=== PATIENT | male | born 1975 | race Caucasian/White ===

== ENCOUNTER 2020-08-22 08:06 | Day surgery (SDC) | payer OTHER, SELFPAY ==
[2020-08-22] VITALS (9 sets, daily range): BP systolic 117–161; BP diastolic 86–99; PULSE 62–82; RESP 16; TEMP 36.1–37; O2SAT 96–100; BMI 25.5
--- NOTE | 2020-08-22 | TONS_PTH ---
PATIENT: MARKOS HEATON LOC: [facility] [place] U#:[id number] AGE/SX: 44/M ROOM: RE08/22/[address]: Dr. Rosalio Cheng MD : 1975 BED: DIS: 08/22/2020 SPEC #: [id number] RECD: 08/22/20 10:51 STATUS: WALE REFavio #: [id number] EZIO: 08/22/20 00:[address]: Rosalio Cheng DEPT: SURGICAL PATHOLOGY RECD BY: Adelaide Dupree ENTERED: 08/22/20 11:43 SP TYPE: TONSILS OTHR DR: Dr. Rosalio Navarro MD Tissues: A - Tonsil, NOS B - Tonsil, NOS Procedures: Frozen Section (charge) Surgery Specimen Level III HEADER OPERATION: Tonsillectomy, direct laryngoscopy with biopsy, frozen section PRE-OP DIAGNOSIS: Hypertrophy of tonsils TISSUE SUBMITTED: A - Left tonsil, FS, B - Right tonsil FROZEN SECTION DIAGNOSIS A. 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 Negative for invasive carcinoma. SJ:geovanny 08/22/2020 MICROSCOPIC DIAGNOSIS A. 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 Negative for invasive carcinoma. Reactive lymphoid hyperplasia. Focal actinomyces colonization. See comment. B. Right tonsil, tonsillectomy: Reactive lymphoid hyperplasia. Focal actinomyces colonization. SJ:geovanny 08/25/2020 COMMENT A. Immunohistochemistry ([id number]) for surrogate HPV marker (p16) will be performed and results will be reported separately. This case has been reviewed in consultation with Dr. Bray who concurs with the above diagnosis. MICROSCOPIC DESCRIPTION Slides are reviewed. GROSS DESCRIPTION A - Received fresh for frozen section diagnosis labeled with the patient's name is a specimen designated left tonsil. The specimen consists of a tonsil that weighs 4.5 gm and measures 3 x 2.5 x 1.5 cm. At one edge of the tonsil there is a polypoid lesion measuring 0.7 x 0.5 x 0.5 cm. The polypoid lesion is bisected. The external surface of the tonsil is pink-jacob, smooth, glistening and somewhat lobulated. Focally it is hemorrhagic, granular and bears cautery artifact. Serial cross sections through the tonsil reveal normal tonsillar architecture. The entire specimen is submitted in four cassettes as follows: 1 - frozen section, polypoid lesion, 2 - frozen section, tonsil, 3 & 4 - rest of the tonsil. B - Received in formalin labeled with the patient's name and designated right tonsil. The specimen consists of a tonsil that weighs 4.3 gm and measures 3 x 2 x 1.5 cm. The external surface is pink-jacob, smooth, glistening and somewhat lobulated. Focally it is hemorrhagic, granular and bears cautery artifact. Serial cross sections through the tonsil reveal normal tonsillar architecture. The entire specimen is submitted in two cassettes. / RALPH:geovanny 08/22/20 TC:1 CPT: 50453, 66043, 91458, 37179
--- NOTE | 2020-08-22 | IMM_PTH ---
PATIENT: MARKOS HEATON LOC: [facility] – [place] U#:[id number] AGE/SX: 44/M ROOM: RE08/22/[address]: Dr. Rosalio Cheng MD : 1975 BED: DIS: 08/22/2020 SPEC #: [id number] RECD: 08/25/20 12:52 STATUS: WALE REQ #: [id number] EZIO: 08/22/20 00:[address]: Rosalio Cheng DEPT: IMMUNOHISTOCHEMISTRY RECD BY: Adelaide Dupere ENTERED: 08/25/20 12:53 SP TYPE: IMMUNO OTHR DR: Dr. Rosalio Navarro MD Tissues: A - Tonsil, NOS Procedures: p16 (initial) KI-67 (add) Comments: @ Specimen number changed from [id number] to [id number] @ on 08/25/20 at 1306 by RGOOD. PHYSICIAN & INSTITUTION [place] [address] SPECIMEN INFORMATION: Tissue Source: A - Left tonsil Clinical Info: Hypertrophy of tonsils Specimen Number: [id number] CPT code: 75101, 31345 METHODOLOGY: Deparaffinized sections of prefer/formalin-fixed tissue or PAP/DQ stained slides are incubated with monoclonal/polyclonal antibodies/oligonucleotide probes. Localization is made via biotin free immunoperoxidase method. Appropriate controls are performed and reacted as expected. Results on target cell population are indicated in the following table: RESULTS: ANTIBODY / CLONE RESULT Block A1 P16 (E6H4) positive, block staining Ki-67 (30-9) positive, high These tests were developed and their performance characteristics determined by [facility]. They may not have been cleared or approved by the U.[place]. Food and Drug Administration. The FDA has determined that such clearance or approval is not necessary. The above immunohistochemical/dualISH markers are ordered and reviewed by the Pathologist. INTERPRETATION: A. 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 RALPH:geovanny 08/26/2020
[2020-08-22] MEDS: Lactated Ringers 1,000 ML 100 ML IV (08:47)
[2020-08-22] MEDS: Oxymetazoline 0.05% 1 SPRAY SPRAY.BTL 15 SPRAY (10:51)
[2020-08-22] MEDS: Lidocaine 4% 50 ML Bottle (10:52)
--- NOTE | 2020-08-22 11:22 | OP.PCM_ITS ---
Problem List (1) Benign neoplasm of tonsil Status: Acute Report of Operation Date of Procedure: 08/22/20 Pre-Operative Diagnosis: Benign lesion left tonsil Post-Operative Diagnosis: Same Surgery/Procedure Performed:: Direct laryngoscopy, tonsillectomy Description of Surgical Findings:: Brandie this is a 44-year-old male with a mass of the left inferior pole of the tonsil. He has no smoking history or other history of malignancy however given its appearance further evaluation and excision for biopsy was advised. The risks, alternatives, potential complications, and benefits were discussed at length and any questions answered to the patient and/or caregiver's satisfaction. Witnessed informed consent was obtained in the office, and the patient and/or caregiver was agreeable to proceed. Procedure went as follows: The patient was identified in the preoperative holding and brought to the operating room, placed under general anesthesia, and intubated. When appropriate anesthesia was obtained, the head of bed was rotated and the patient prepped and draped in usual sterile fashion. A dental guard or moistened gauze was then placed to protect the upper gums and the Dedo laryngoscope then introduced. Direct laryngoscopy was then carried out. The lateral posterior pharyngeal wall mucosa, vallecula, piriforms, and epiglottis were noted to be normal in appearance. In the inferior pole of the left tonsil there was noted to be a 1 x 1.5 cm exophytic firm mass at the inferior pole with the junction of the lingual tonsil. The right tonsil was normal in appearance. The true and false vocal folds were then brought into view. This was noted to be normal without lesions or masses. The esophageal inlet was noted to be normal in appearance. The Dedo laryngoscope and dental guard were then removed. Attention was then turned to the tonsillectomy. A Parviz Pineda mouthgag was then placed and the patient suspended from the [place] stand. The oral cavity was examined and noted to have 2+ tonsillar hypertrophy. Beginning on the right side, the right tonsil was then grasped with a curved tenaculum and dissected from the underlying capsule with monopolar cautery. This was then sent as specimen. Similar procedure was then completed on the contralateral side with extension of the dissection to include a portion of the lingual tonsil encompassing the visible mass. This was then sent for frozen section evaluation. Initial interpretation was a benign squamous papilloma with moderate dysplastic change but no esdras malignancy. In this no further resection was undertaken. The oral and nasal cavities were then irrigated with saline solution. An NG tube was then placed to decompress the stomach. The patient was then returned to anesthesia, revived and extubated having tolerated the procedure well. Type of Anesthesia:: General Anesthesiologist: John Delgado Special Medications: none Specimen's removed: bilateral tonsils Drains: none Estimated Blood Loss (mL): 0 mL Fluids Replaced: 400 mL Grafts/Implants Used: none - Complications none - Admit VTE Documentation VTE Present on Admission: No VTE Mechan Device Prophylaxis: SCD's VTE Pharm Prophylaxis ordered?: No
--- NOTE | 2020-08-22 11:28 | DCINST_ITS ---
Discharge Diet: No Restrictions Discharge Activity: Return to Normal Activity Call your doctor if your incision/area has: Sudden Increased Bleeding Call your doctor if you observe: Fever of 101 or Higher, Uncontrolled pain Allergies/Adverse Reactions: Allergies No Known Allergies Allergy (Verified 08/22/20 08:34) Medications to take at Discharge Varenicline [Chantix] 1 mg PO BID 08/15/20 Primary Care Physician: Rosalio Navarro MD [Primary Care Provider] - Test Results: Test results from this visit will be discussed in further detail at your follow- up appointment, if applicable. Please Follow Up With: Rosalio Cheng MD When: 2 weeks
[2020-08-22] MEDS: Ibuprofen 100 MG/5 ML UDC 600 MG PO (13:19)
== END 2020-08-22 15:46 | disposition home or self-care (01) ==
LOC: SDC 08:12 → AC 08:13
PROVIDERS: PCP Family Medicine; Referring Provider Otolaryngology; Visit Provider Otolaryngology
PROC: (CPT 31525; principal; 2020-08-22 09:55)
DX: D10.4 Benign neoplasm of tonsil (principal); J35.1 Hypertrophy of tonsils; Z20.822 Contact with and (suspected) exposure to COVID-19; Z87.891 Personal history of nicotine dependence
CPT/HCPCS: 00320; 31525; 42826; 87426; 88304; 88331; 88341; 88342; C9803; J7120; J2405

== ENCOUNTER → 2020-10-10 16:00 | Outpatient (CLI) | payer BC, SELFPAY ==
[2020-08-22 08:48] VITALS: BMI 25.5
== END ==
PROVIDERS: PCP Family Medicine; Referring Provider Family Medicine; Visit Provider Family Medicine
DX: Z13.220 Encounter for screening for lipoid disorders (principal); Z87.891 Personal history of nicotine dependence
CPT/HCPCS: 36415

== ENCOUNTER → 2023-01-04 | Outpatient (CLI) | payer OTHER, SELFPAY ==
[2023-01-04 10:26] LABS: Microalbumin:Creatinine Ratio 3.7 mg/g CRE (<30 mg/g CRE)
[2023-01-04 10:51] LABS: Alanine Aminotransfer ALT/SGPT 64 U/L (16-61); Cholesterol 211 mg/dL (200); Creatinine, Serum 0.98 mg/dL (0.70-1.30); EST Glomerular Filtration Rate 86 mL/min (>60); Est Glom Filt Rate - Afr Amer 104 mL/min (>60); High Density Lipoprotein 64 mg/dL; Triglycerides 95 mg/dL; Very Low Density Lipoprotein 19 mg/dL (5-40)
== END | disposition home or self-care (01) ==
LOC: MTLAB 07:50
PROVIDERS: PCP Family Medicine; Referring Provider Family Medicine; Visit Provider Family Medicine
DX: E78.5 Hyperlipidemia, unspecified (principal)
CPT/HCPCS: 36415; 80061; 82043; 82565; 82570; 84460

== ENCOUNTER → 2023-07-08 | Outpatient (CLI) | payer SELFPAY ==
--- OUTSIDE RECORDS SUMMARY | 2023-07-08 10:55 | XMS RPT_ITS | CCD ---
Author Name Unknown Address [address] [place] [address] Organization [facility] Care Team Providers Care Director Funeral Name Role Phone Low, Frank W Unavailable Unavailable Low, Frank W Unavailable Unavailable No Doctor Assigned, Nodr Unavailable Unavail able Low, Frank W Unavailable Unavailable No Doctor Assigned, Nodr Unavailable Unavail able Ramon MANRIQUE, Rosalio Higuera Primary Care Provider Rosalio Navarro MD Primary Care Provider [phone] Dr. Rosalio Navarro Primary Care Unavailable Smooth, Dr. Satya Steinberg Admitting Ventura Rebollar, Dr. Satya Steinberg Attending Ventura Rebollar, Dr. Satya Steinberg Referring Dr. Rosalio Borden Primary Care Unavailable Smooth, Dr. Satya Steinberg Admitting Ventura Rebollar, Dr. Satya Steinberg Attending Ventura Rebollar, Dr. Satya Steinberg Referring Ventura gallagher Allergies Allergy Classification Reported Allergen(s) Allergy Type Date of Onset Reaction(s) Facility (1 source) No Known Medication Allergies; Translations: [No Known Medication Allergies] Propensity to adverse reactions to drug (disorder) [facility] Repository Medications Current Medications Medication Drug Class(es) Dates Sig (Normalized) Sig (Original) benoxinate hydrochloride 4 mg/ml / fluorescein sodium 2.5 mg/ml ophthalmic solution (1 source) Diagnostic Dye Start: 08-04-2021 End: 08-05-2021 fluorescein-yves xinate 0.25-0.4 % 1 Drop (FLURESS) ketorolac tromethamine 5 mg/ml ophthalmic solution (4 sources) Nonsteroidal Anti-inflammatory Drug, Cyclooxygenase Inhibitor Start: 01-07-2022 End: 02-11-2022 take 1 drop(s) into the eye(s) four times daily keTORolac (ACULAR) 0.5 % ophthalmic solution Use 1 Drop in the left eye four times daily. 5 mL 1 01/07/2022 02/11/2022 Active Completed/Discontinued Medications Medication Drug Class(es) Dates Sig (Normalized) Sig (Original) fluorometholone 1 mg/ml ophthalmic suspension (1 source) Corticosteroid Start: 12-29-2021 fluorometholone (FML LIQUID FILM) 0.1 % ophthalmic suspension Use 1 Drop in the left eye three times daily. 5 mL 1 12/29/2021 Active Problems Active Problems Problem Classification Problem Date Documented Da te Episodic/Chronic Cataract (20 sources) Senile combined form cataract of right eye; Translations: [Combined forms of age-related cataract, right eye] Onset: 08-04-2021 Chronic Other eye disorders (1 source) H/O: R cataract extraction; Translations: [Cataract extraction status, right eye] Episodic Other eye disorders (2 sources) H/O: L cataract extraction; Translations: [Cataract extraction status, left eye] Onset: 01-08-2022 Episodic Past or Other Problems Problem Classification Problem Date Documented Da te Episodic/Chronic Blindness and vision defects (1 source) Regular astigmatism, left eye; Translations: [Regular astigmatism, left eye] Onset: 01-07-2022 Episodic Results Test Name Value Interpretation Reference Range Facil ity Vital Signs Date Time Vital Sign Value Performing Clinician Mary Ellen austin 08-25-2021 16:07-0400 Diastolic blood pressure 94 mm[Hg] Satya Rebollar MD Work Phone: [facility] 08-25-2021 16:07-0400 Heart rate 70 /min Satya Rebollar MD Work Phone: [facility] 08-25-2021 16:07-0400 Systolic blood pressure 127 mm[Hg] Satya Rebollar MD Work Phone: [facility] 08-04-2021 14:46-0400 Diastolic blood pressure 94 mm[Hg] Satya Rebollar MD Work Phone: [facility] 08-04-2021 14:46-0400 Heart rate 70 /min Satya Rebollar MD Work Phone: [facility] 08-04-2021 14:46-0400 Systolic blood pressure 127 mm[Hg] Satya Rebollar MD Work Phone: [facility] Encounters Encounter Date Encounter Type Care Provider Facility Start: 01-08-2022 End: 01-08-2022 Patient encounter procedure Satya Rebollar MD Work Phone: Ophthalmology Procedures Date Procedure Procedure Detail Performing Clinician Start: 08-04-2021 IOL BIOMETRY W/ IOL CALC OU (BOTH EYES) Satya Rebollar MD Work Phone: Start: 08-04-2021 Computerized ophthal susan imaging retina Satya Rebollar MD Work Phone: Plan of Treatment Date Care Activity Detail Author Start: 01-14-2022 Influenza vaccination [facility] Start: 01-14-2021 Influenza vaccination INFLUENZA (#1) [facility] Start: 2018 COLOGUARD (FIT-DNA) COLOGUARD (FIT-D NA) [facility] Start: 2018 Colonoscopy COLONOSCOPY [facility] Start: 2018 COLORECTAL CANCER SCREENING COLORECTAL CANCER SCREENING [facility] Start: [address] COLONOGRAPHY [facility] Start: 2018 DIABETES SCREEN DIABETES SCREEN [facility] Start: 2018 FECAL OCCULT BLOOD FECAL OCCULT BLOO D [facility] Start: 2018 SIGMOIDOSCOPY SIGMOIDOSCOPY [facility] Start: 2008 LIPID SCREEN LIPID SCREEN [facility] Start: 1992 Urine microalbumin profile DTAP,TDAP ,TD (1 - Tdap) [facility] Start: 10-12-1991 HEPATITIS C SCREENING HEPATITIS C SC REENING [facility] Start: 10-12-1991 HIV SCREENING HIV SCREENING [facility] Start: 1985 Adult depression scr [facility] assessment DEPRESSION SCREENING [facility] Start: 1978 COVID-19 VACCINE (1) COVID-19 VACCIN E (1) [facility] Start: 04-13-1974 COVID-19 VACCINE (#1) COVID-19 VACCI NE (#1) [facility] Start: 1973 HEPATITIS B (1 of 3 - 3-dose series) HEPATITIS B (1 of 3 - 3-dose series) [facility] Payers Date Payer Category Payer Unknown MMO MMO [employer] [id number] 2021-Present [phone] [address] [place] [address] PPO [id number] 2017 Unknown 1973 Unknown [id number] 1973 Unknown [id number] Unknown [id number] Social History Date Type Detail Facility Start: 08-04-2021 End: 01-08-2022 Tobacco smoking status NHIS Never smoked tobacco [facility] Work Phone: Start: 08-04-2021 End: 01-08-2022 Tobacco use and exposure Smokeless tobacco non-user [facility] Work Phone: Start: 1975 Sex Assigned At Not on file [facility] Start: 07-25-2021 End: 09-04-2021 Exposure to SARS-CoV-2 (event) Not sure [facility] Clinical Notes 08-04-2021 to 01-08-2022 Satya Rebollar MD - 01/08/2022 3:25 PM EDTPatient Instructions Note Date & Type Note Facility 01-08-2022 Note HNO ID: [id number] Author: Satya Rebollar MD Service: ? Author Type: Physician Type: Progress Notes Filed: 01/08/2022 3:29 PM Note Text: ASSESSMENT/PLAN: 1. Status post cataract extraction and insertion of intraocular lens of left eye - ICD9: V45.61, V43.1, ICD10: Z98.42, Z96.1 (primary diagnosis) Current Ophthalmic Meds keTORolac (ACULAR) 0.5 % ophthalmic solution Use 1 Drop in the left eye four times daily. fluorometholone (FML LIQUID FILM) 0.1 % ophthalmic suspension Use 1 Drop in the left eye three times daily. Continue: Systane Complete Artificial Tears - Use 1 Drop into both eyes three times a day. 2. Pseudophakia of right eye - ICD9: V43.1, ICD10: Z96.1 I have confirmed and edited as necessary the relevant ophthalmic history, review of systems, surgical history, and ophthalmological examination findings as obtained by the ophthalmic technical staff. I have seen and examined Markos Heaton. I have discussed the examination findings, diagnosis, and treatment options with Markos Heaton and/or his family. I have also reviewed and agree with the assessment and plan as stated above and agree with all its relevant components. I gave the patient the opportunity to ask questions about the findings, diagnosis, and treatment options. Satya Rebollar MD [facility] 01-08-2022 History of Present illness Narrative ASSESSMENT/PLAN: 1. Status post cataract extraction and insertion of intraocular lens of left eye - ICD9: V45.61, V43.1, ICD10: Z98.42, Z96.1 (primary diagnosis) Current Ophthalmic Meds keTORolac (ACULAR) 0.5 % ophthalmic solution Use 1 Drop in the left eye four times daily. fluorometholone (FML LIQUID FILM) 0.1 % ophthalmic suspension Use 1 Drop in the left eye three times daily. Continue: Systane Complete Artificial Tears - Use 1 Drop into both eyes three times a day. 2. Pseudophakia of right eye - ICD9: V43.1, ICD10: Z96.1 I have confirmed and edited as necessary the relevant ophthalmic history, review of systems, surgical history, and ophthalmological examination findings as obtained by the ophthalmic technical staff. I have seen and examined Markos Heaton. I have discussed the examination findings, diagnosis, and treatment options with Markos Heaton and/or his family. I have also reviewed and agree with the assessment and plan as stated above and agree with all its relevant components. I gave the patient the opportunity to ask questions about the findings, diagnosis, and treatment options. Satya Rebollar MD documented in this encounter [facility] 01-08-2022 Instructions Satya Rebollar MD - 01/08/2022 3:24 PM EDT Stop FML drops. Current Ophthalmic Meds keTORolac (ACULAR) 0.5 % ophthalmic solution Use 1 Drop in the left eye four times daily. fluorometholone (FML LIQUID FILM) 0.1 % ophthalmic suspension Use 1 Drop in the left eye three times daily. If you have any questions please contact our office at [phone]. After office hours or on the weekend, please call Dr. Rebollar on his cell phone at [phone]. documented in this encounter [facility] 01-07-2022 Note Post Operative Note: Post-Procedure Diagnosis: 1. Combined Form Age Related Cataract Left Eye 2. Regular Astigmatism Left Eye Procedure: 1. Cataract Extraction with Intraocular lens Implant with LRI (Limbal Relaxing Incision) Left Eye Surgeon: Satya Rebollar MD Resident/Fellow/Other Cartographic Designer: None Estimated Blood Loss (mL): none Specimen: no Findings: 1. Combined Form Age Related Cataract Left Eye 2. Regular Astigmatism Left Eye Operative Report Dictated: Dictation: not applicable - note contains Operative Report Operative Report: In the pre-op area the patients operative eye was marked at 3 o'clock, 6 o'clock and 9 o'clock at the limbus with a fine marking pen in a sitting position. The patient was brought to the operating room. The patient was correctly identified in the preop area and the operative eye was marked with a marking pen. The operative eye was dilated in the preoperative area. The patient was then taken to the operating room where timeout was performed before starting the procedure. Combined anesthesia with intravenous sedation and topical tetracaine eyedrops were given in the operative eye. The operative eye was prepped and draped in the standard sterile ophthalmic fashion in preparation for ophthalmic surgery. A Efren wire speculum was then inserted between the eyelids of the operative eye and the operating microscope was placed over the operative eye. A 45 degree Arc Limbal Relaxing incision was made at 93 degree axis with the help of a linda knife set at 600 micron depth. A paracentesis incision was made approximately 30 away from the planned surgical incision site with the help of MVR blade. 1% lidocaine MPF with Phenylephrine1.5% PF was injected into the anterior chamber through the paracentesis incision. A near limbal clear corneal incision was fashioned in the temporal quadrant just outside the vascular arcade and Viscoat was injected into anterior chamber to firm the eye. A bent needle cystotome was used and Utrata forceps were utilized to create a continuous curvilinear capsulorrhexis. BSS was injected beneath the anterior capsule to hydrodissect the nucleus from adjacent cortex and capsule. The residual cortex were then aspirated with irrigation aspiration handpiece. The posterior capsule was then polished with the help of soft irrigation-aspiration tip. Provisc viscoelastic was then injected into the eye to reform the anterior chamber and to open the capsular bag. The intraocular lens implant was taken from its sterile wrapping, inspected under the surgical microscope and found to be in good condition. The intraocular lens implant 23.5D was injected into the capsule bag. The Provisc was then aspirated from the anterior chamber and from behind the intraocular lens implant. The anterior chamber was inflated with the help of BSS to moderate tension. And the edges of the surgical incision were then hydrated with the help of BSS. Vigamox was then injected into the anterior chamber and into the capsule bag through the paracentesis incision. The surgical wound was then inspected and found to be watertight. The wire speculum and drapes were then removed. Pred Forte eyedrops, Acular eyedrops and Betadine 5% sterile ophthalmic solution were instilled in the conjunctival sac. The patient tolerated the procedure well and was taken to recovery room in stable condition. Attestation: Note Completion: Attending AttestationI performed the procedure without a resident Electronic Signatures: Satya Rebollar) (Signed 07-Jan-2022 13:43) Authored: Post Operative Note, Note Completion Last Updated: 07-Jan-2022 13:43 by Satya Rebollar) [facility] 01-07-2022 Note History & Physical R eviewed: I have reviewed the History and Physical dated: 01-Jan-2022 History and Physical reviewed and relevant findings noted. Patient examined to review pertinent physical findings.: No significant changes Home Medications Reviewed: no changes noted Allergies Reviewed: no changes noted ERAS (Enhanced Recovery After Surgery): ERAS Patient: no Consent: COVID-19 Consent: COVID-19 Risk ConsentSurgeon has reviewed child risks related to the risk of curt COVID-19 and if they contract COVID-19 what the risks are. Electronic Signatures: Satya Rebollar) (Signed 07-Jan-2022 12:41) Authored: History & Physical Reviewed, ERAS, Consent, Note Completion Last Updated: 07-Jan-2022 12:41 by Satya Rebollar) [facility] 01-01-2022 Note HNO ID: [id number] Author: Satya Rebollar MD Service: ? Author Type: Physician Type: Progress Notes Filed: 01/01/2022 2:23 PM Note Text: ASSESSMENT/PLAN: 1. Combined form of age-related cataract, left eye - ICD9: 366.19, ICD10: H25.812 (primary diagnosis) 2. Regular astigmatism of left eye - ICD9: 367.21, ICD10: H52.222 Cataract Presurgical Documentation Cataract: Left eye (OS) Current Visual Acuity Right Eye Distance SC 20/20 Left Eye Distance SC 20/50 Glare Testing: Left Eye Medium 20/80 Visual Function: Markos Heaton states that the decline in vision from the cataract impedes his abilities as listed in the HPI, as well as other activities of daily living. Markosaidee Heaton has confirmed that he is no longer able to function adequately on a day-to-day basis because of his current visual condition. Further, it is my medical opinion that the cataract is the primary cause, or at least a significantly contributory cause of his visual dysfunction. With uncomplicated cataract surgery and lens implantation, it is my expectation that his visual function and quality of life will improve, significantly. The risks, benefits, alternatives, personnel and complications of cataract surgery with lens implantation were discussed with Markos Isra Heaton in detail. he appeared to understand and asked that I proceed with plans for surgery. PHYSICAL EXAM: Vital Signs: Blood pressure 129/88, pulse 63. Respiratory: Normal breath sounds, no wheezing. CARD: Normal heart sounds 1 AND 2, normal sinus rhythm. Current Ophthalmic Meds fluorometholone (FML LIQUID FILM) 0.1 % ophthalmic suspension Use 1 Drop in the left eye three times daily. Patient wishes to have traditional cataract surgery with basic Intraocular lens left eye with limbal relaxing incisions on January 07, 2022 at [facility]. Patient wishes to have cataract surgery with the option stated above. Patient understands that an intraocular lens implant does not necessarily replace the need for glasses. Patient understands that it is impossible for the surgeon to inform him/her of every possible complication that may occur. The surgeon has answered all of the patient's questions. Patient understands that if he/she has a mature or dense cataract, pseudoexfoliation cataract, or history of use of Flomax, he/she may require the use of Maluyugin Ring and/or Vision Blue during surgery. Patient understands the risks, benefits, and alternatives to surgery. 3. Pseudophakia of right eye - ICD9: V43.1, ICD10: Z96.1 I have confirmed and edited as necessary the relevant ophthalmic history, review of systems, surgical history, and ophthalmological examination findings as obtained by the ophthalmic technical staff. I have seen and examined Markos Heaton. I have discussed the examination findings, diagnosis, and treatment options with Markos Heaton and/or his family. I have also reviewed and agree with the assessment and plan as stated above and agree with all its relevant components. I gave the patient the opportunity to ask questions about the findings, diagnosis, and treatment options. Satya Rebollar MD [facility] documented as of this encounter (statuses as of 01/08/2022) [facility]08-16-2022 NoteHNO ID: [id number] Author: Satya Rebollar MD Service: ? Author Type: Physician Type: Progress Notes Filed: 12/29/2021 9:30 AM Note Text: ASSESSMENT/PLAN: 1. Combined form of age-related cataract, left eye - ICD9: 366.19, ICD10: H25.812 (primary diagnosis) Patient wishes to have traditional cataract surgery with astigmatism correction by Limbal Relaxing Incisions left eye scheduled on 01/07/22. Patient wishes to have cataract surgery with the option stated above. Patient understands that an intraocular lens implant does not necessarily replace the need for glasses. Patient understands that it is impossible for the surgeon to inform him/her of every possible complication that may occur. The surgeon has answered all of the patient's questions. Patient understands that if he/she has a mature or dense cataract, pseudoexfoliation cataract, or history of use of Flomax, he/she may require the use of Maluyugin Ring and/or Vision Blue during surgery. Patient understands the risks, benefits, and alternatives to surgery. Start Inveltys three times a day left eye (when finished with inveltys start FML) Systane Complete Artificial Tears - Use 1 Drop into both eyes three times a day. Cataract Presurgical Documentation Cataract: Left eye (OS) Current Visual Acuity Right Eye Distance SC 20/25 Left Eye Distance SC 20/50 Left Eye Distance CC 20/50 Best Corrected Vision Left Eye 20/50 Glare Testing: Left Eye Medium 20/80 Visual Function: Markos Heaton states that the decline in vision from the cataract impedes his abilities as listed in the HPI, as well as other activities of daily living. Markos Heaton has confirmed that he is no longer able to function adequately on a day-to-day basis because of his current visual condition. Further, it is my medical opinion that the cataract is the primary cause, or at least a significantly contributory cause of his visual dysfunction. With uncomplicated cataract surgery and lens implantation, it is my expectation that his visual function and quality of life will improve, significantly. The risks, benefits, alternatives, personnel and complications of cataract surgery with lens implantation were discussed with Markos Heaton in detail. he appeared to understand and asked that I proceed with plans for surgery. PHYSICAL EXAM: Vital Signs: Blood pressure 129/88, pulse 63. Respiratory: Normal breath sounds, no wheezing. CARD: Normal heart sounds 1 AND 2, normal sinus rhythm. 2. Pseudophakia of right eye - ICD9: V43.1, ICD10: Z96.1 - Intraocular lens in good position right eye I have confirmed and edited as necessary the relevant ophthalmic history, review of systems, surgical history, and ophthalmological examination findings as obtained by the ophthalmic technical staff. I have seen and examined Markos Heaton. I have discussed the examination findings, diagnosis, and treatment options with Markos Heaton and/or his family. I have also reviewed and agree with the assessment and plan as stated above and agree with all its relevant components. I gave the patient the opportunity to ask questions about the findings, diagnosis, and treatment options. Satya Rebollar [facility]04-22-2022 NoteHNO ID: [id number] Author: Satya Rebollar MD Service: ? Author Type: Physician Type: Progress Notes Filed: 09/04/2021 9:42 AM Note Text: ASSESSMENT/PLAN: 1. Status post cataract extraction and insertion of intraocular lens of right eye - ICD9: V45.61, V43.1, ICD10: Z98.41, Z96.1 (primary diagnosis) Use medications as directed: Current Ophthalmic Meds keTORolac (ACULAR) 0.5 % ophthalmic solution Use 1 Drop in the right eye four times daily for 7 days then 3 times daily until 10/08/2021 prednisoLONE acetate (PRED FORTE, ECONOPRED PLUS) 1 % ophthalmic suspension Use 1 Drop in the right eye four times daily for 7 days then 3 times daily until 10/08/2021 Systane Complete Artificial Tears - Use 1 Drop into both eyes three times a day. Post op appointment with Dr. Francis Navarro 1 week 2. Combined form of age-related cataract, left eye - ICD9: 366.19, ICD10: H25.[address] Ramon Rebollar MD I have confirmed and edited as necessary the relevant ophthalmic history, review of systems, surgical history, and ophthalmological examination findings as obtained by the ophthalmic technical staff. I have seen and examined Markos Heaton. I have discussed the examination findings, diagnosis, and treatment options with Markos Heaton and/or his family. I have also reviewed and agree with the assessment and plan as stated above and agree with all its relevant components. I gave the patient the opportunity to ask questions about the findings, diagnosis, and treatment options.[facility]04-22-2022 Instructions* Patient Instructions * Satya Rebollar MD - 09/04/2021 9:40 AM EDT Use medications as directed: Current Ophthalmic Meds keTORolac (ACULAR) 0.5 % ophthalmic solution Use 1 Drop in the right eye four times daily for 7 days then 3 times daily until 10/08/2021 prednisoLONE acetate (PRED FORTE, ECONOPRED PLUS) 1 % ophthalmic suspension Use 1 Drop in the righteye four times daily for 7 days then 3 times daily until 10/08/2021 Systane Complete Artificial Tears - Use 1 Drop into both eyes three times a day. If you have any questions please contact our office at [phone]. After office hours or on the weekend, please call Dr. Rebollar on his cell phone at [phone]. [facility] History of Present illness Narrative* Satya Rebollar MD - 09/04/2021 9:38 AM EDT ASSESSMENT/PLAN: 1. Status post cataract extraction and insertion of intraocular lens of right eye - ICD9: V45.61, V43.1, ICD10: Z98.41, Z96.1 (primary diagnosis) Use medications as directed: Current Ophthalmic Meds keTORolac (ACULAR) 0.5 % ophthalmic solution Use 1 Drop in the right eye four times daily for 7 days then 3 times daily until 10/08/2021 prednisoLONE acetate (PRED FORTE, ECONOPRED PLUS) 1 % ophthalmic suspension Use 1 Drop in the righteye four times daily for 7 days then 3 times daily until 10/08/2021 Systane Complete Artificial Tears - Use 1 Drop into both eyes three times a day. Post op appointment with Dr. Francis Navarro 1 week 2. Combined form of age-related cataract, left eye - ICD9: 366.19, ICD10: H25.[address] Ramon Rebollar MD I have confirmed and edited as necessary the relevant ophthalmic history, review of systems, surgical history, and ophthalmological examination findings as obtained by the ophthalmic technical staff.I have seen and examined Markos Heaton. I have discussed the examination findings, diagnosis, and treatment options with Markos Heaton and/or his family. I have also reviewed and agree with the assessment and plan as stated above and agree with all its relevant components. I gave the patient the opportunity to ask questions about the findings, diagnosis, and treatment options. documented [facility] encounter[facility] NotePost Operative Note: Post-Procedure Diagnosis: 1. Combined Form Age Related Cataract Right Eye Procedure: 1. Cataract Extraction with Intraocular Lens Implant Right Eye Surgeon: Satya Rebollar MD Resident/Fellow/Other Cartographic Designer: None Estimated Blood Loss (mL): none Specimen: no Findings: 1. Combined Form Age Related Cataract Right Eye Operative Report Dictated: Dictation: not applicable - note contains Operative Report Operative Report: The patient was correctly identified and the patient's operative eye was marked with a marking pen and verified with the patient in the pre-operative area. The operative eye was dilated in the preoperative area. The patient was then taken to the operating room where timeout was performed before starting the procedure. Combined anesthesia with intravenous sedation and topical tetracaine eyedrops were instilled into the right eye. The operative eye was prepped and draped in the standard sterile ophthalmic fashion in preparation for ophthalmic surgery. A Efren wire speculum was then inserted between the eyelids of the right eye and the operating microscope was placed over the right eye. A paracentesis incision was made approximately 30 away from the planned surgical incision site with the help of MVR blade. 1% lidocaine MPF with Phenylephrine 1.5% PF was injected into the anterior chamber through the paracentesis incision. A near limbal clear corneal incision was fashioned in the temporal quadrant just outside the vascular arcade and Viscoat was injected into anterior chamber to firm the eye. A bent needle cystotome was used and Utrata forceps were utilized to create a continuous curvilinear capsulorrhexis. BSS was injected beneath the anterior capsule to hydrodissect the nucleus from adjacent cortex and capsule. The residual cortex was then aspirated with irrigation/aspiration handpiece. The posterior capsule was then polished with the help of soft irrigation-aspiration tip. Provisc viscoelastic was then injected into the eye to reform the anterior chamber and to open the capsular bag. The intraocular lens implant was taken from its sterile wrapping, inspected under the surgical microscope and found to be in good condition. The intraocular lens implant 23.5D was injected into the capsule bag. The Provisc was then aspirated from the anterior chamber and from behind the intraocular lens implant. The anterior chamber was inflated with the help of BSS to moderate tension. And the edges of the surgical incision were then hydrated with the help of BSS. Vigamox was then injected into the anterior chamber and into the capsule bag through the paracentesis incision. The surgical wound was then inspected and found to be watertight. The wire speculum and drapes were then removed. Pred Forte eyedrops, Acular eyedrops and Betadine 5% sterile ophthalmic solution were instilled in the conjunctival sac. The patient tolerated the procedure well and was taken to recovery room in stable condition. Attestation: Note Completion: Attending AttestationI performed the procedure without a resident Electronic Signatures: Satya Rebollar) (Signed 03-Sep-2021 10:57) Authored: Post Operative Note, Note Completion Last Updated: 03-Sep-2021 10:57 by Satya Rebollar)[facility] 09-03-2021 NoteHistory & Physical Reviewed: I have reviewed the History and Physical dated: 25-Aug-2021 History and Physical reviewed and relevant findings noted. Patient examined to review pertinent physical findings.: No significant changes Home Medications Reviewed: no changes noted Allergies Reviewed: no changes noted ERAS (Enhanced Recovery After Surgery): ERAS Patient: no Consent: COVID-19 Consent: COVID-19 Risk ConsentSurgeon has reviewed child risks related to the risk of curt COVID-19 and if they contract COVID-19 what the risks are. Electronic Signatures: Satya Rebollar) (Signed 03-Sep-2021 09:12) Authored: History & Physical Reviewed, ERAS, Consent, Note Completion Last Updated: 03-Sep-2021 09:12 by Satya Rebollar)[facility] 08-25-2021 NoteHNO ID: [id number] Author: Satya Rebollar MD Service: ? Author Type: Physician Type: Progress Notes Filed: 08/25/2021 4:26 PM Note Text: ASSESSMENT/PLAN: 1. Combined form of age-related cataract, right eye - ICD9: 366.19, ICD10: H25.811 (primary diagnosis) Cataract Presurgical Documentation Cataract: Right eye (OD) Patient reported symptoms: Associated symptoms Positive for: Blurred Vision, difficulty with driving, difficulty with reading, difficulty with watching television Negative for: Eye Redness, foreign body sensation, decreased vision, flashes, floaters, tearing, dryness, halos, glare Current Visual Acuity: Right Eye Distance CC 20/80 Left Eye Distance CC 20/30 Glare Testing: Left Eye Medium 20/60 Visual Function: David Heaton states that the decline in vision from the cataract impedes the ability to drive and to read as well as other activities of daily living. David Heaton has confirmed that he is no longer able to function adequately on a day-to-day basis because of his current visual condition. Further, it is my medical opinion that the cataract is the primary cause, or at least a significantly contributory cause of his visual dysfunction. With uncomplicated cataract surgery and lens implantation, it is my expectation that his visual function and quality of life will improve, significantly. The risks, benefits, alternatives, personnel and complications of cataract surgery with lens implantation were discussed with David Heaton in detail. he appeared to understand and asked that I proceed with plans for surgery. PHYSICAL EXAM: Vital Signs: Blood pressure 127/94, pulse 70. Respiratory: Normal breath sounds, no wheezing. CARD: Normal heart sounds 1 AND 2, normal sinus rhythm. Current Ophthalmic Meds loteprednol etabonate (EYSUVIS) 0.25 % drps Use 1 Drop in eyes four times daily. Systane Complete Artificial Tears - Use 1 Drop into both eyes three times a day. Patient wishes to have traditional cataract surgery with basic Intraocular lens right eye on September 03, 2021 At [facility]. Patient wishes to have cataract surgery with the option stated above. Patient understands that an intraocular lens implant does not necessarily replace the need for glasses. Patient understands that it is impossible for the surgeon to inform him/her of every possible complication that may occur. The surgeon has answered all of the patient's questions. Patient understands that if he/she has a mature or dense cataract, pseudoexfoliation cataract, or history of use of Flomax, he/she may require the use of Maluyugin Ring and/or Vision Blue during surgery. Patient understands the risks, benefits, and alternatives to surgery. 2. Combined form of age-related cataract, left eye - ICD9: 366.19, ICD10: H25.812 Schedule surgery once the right eye is stable. Satya Rebollar MD I have confirmed and edited as necessary the relevant ophthalmic history, review of systems, surgical history, and ophthalmological examination findings as obtained by the ophthalmic technical staff. I have seen and examined David Heaton. I have discussed the examination findings, diagnosis, and treatment options with David Heaton and/or his family. I have also reviewed and agree with the assessment and plan as stated above and agree with all its relevant components. I gave the patient the opportunity to ask questions about the findings, diagnosis, and treatment options.[facility]04-12-2022 Instructions* Patient Instructions * Satya Rebollar MD - 08/25/2021 4:20 PM EDT Current Ophthalmic Meds loteprednol etabonate (EYSUVIS) 0.25 % drps Use 1 Drop in eyes four times daily. Systane Complete Artificial Tears - Use 1 Drop into both eyes three times a day. If you have any questions please contact our office at [phone]. After office hours or on the weekend, please call Dr. Rebollar on his cell phone at [phone]. documented in this encounterReg[facility]04-12-2022 History of Present illness Narrative* Satya Rebollar MD - 08/25/2021 4:17 PM EDT ASSESSMENT/PLAN: 1. Combined form of age-related cataract, right eye - ICD9: 366.19, ICD10: H25.811 (primary diagnosis) Cataract Presurgical Documentation Cataract: Right eye (OD) Patient reported symptoms: Associated symptoms Positive for: Blurred Vision, difficulty with driving, difficulty with reading, difficulty with watching television Negative for: Eye Redness, foreign body sensation, decreased vision, flashes, floaters, tearing, dryness, halos, glare Current Visual Acuity: Right Eye Distance CC 20/80 Left Eye Distance CC 20/30 Glare Testing: Left Eye Medium 20/60 Visual Function: David Heaton states that the decline in vision from the cataract impedes the ability to drive and to read as well as other activities of daily living. David Heaton has confirmed that he is no longer able to function adequately on a day-to-day basis because of his current visual condition. Further, it is my medical opinion that the cataract is the primary cause, or at least a significantly contributory cause of his visual dysfunction. With uncomplicated cataract surgery and lens implantation, it is my expectation that his visual function and quality of life will improve, significantly. The risks, benefits, alternatives, personnel and complications of cataract surgery with lens implantation were discussed with David Heaton in detail. he appeared to understand and asked that I proceedwith plans for surgery. PHYSICAL EXAM: Vital Signs: Blood pressure 127/94, pulse 70. Respiratory: Normal breath sounds, no wheezing. CARD: Normal heart sounds 1 & 2, normal sinus rhythm. Current Ophthalmic Meds loteprednol etabonate (EYSUVIS) 0.25 % drps Use 1 Drop in eyes four times daily. Systane Complete Artificial Tears - Use 1 Drop into both eyes three times a day. Patient wishes to have traditional cataract surgery with basic Intraocular lens right eye on September 03, 2021 At [facility]. Patient wishes to have cataract surgery with the option stated above. Patient understands that an intraocular lens implant does not necessarily replace the need for glasses. Patient understands that it is impossible for the surgeon to inform him/her of every possible complication that may occur. The surgeon has answered all of the patient'squestions. Patient understands that if he/she has a mature or dense cataract, pseudoexfoliation cataract, or history of use of Flomax, he/she may require the use of Maluyugin Ring and/or Vision Blue during surgery. Patient understands the risks, benefits, and alternatives to surgery. 2. Combined form of age-related cataract, left eye - ICD9: 366.19, ICD10: H25.812 Schedule surgery once the right eye is stable. Satya Rebollar MD I have confirmed and edited as necessary the relevant ophthalmic history, review of systems, surgical history, and ophthalmological examination findings as obtained by the ophthalmic technical staff.I have seen and examined David Heaton. I have discussed the examination findings, diagnosis, and treatment options with David Heaton and/or his family. I have also reviewed and agree with the assessment and plan as stated above and agree with all its relevant components. I gave the patient the opportunity to ask questions about the findings, diagnosis, and treatment options. documented in this encounterReg[facility]03-22-2022 NoteHNO ID: [id number] Author: Satya Rebollar MD Service: ? Author Type: Physician Type: Progress Notes Filed: 08/04/2021 4:14 PM Note Text: ASSESSMENT/PLAN: 1. Combined form of age-related cataract, right eye - ICD9: 366.19, ICD10: H25.811 (primary diagnosis) Reviewed Dr. Francis Navarro's examination and notes today Blood pressure 127/94, pulse 70. Cataract Presurgical Documentation Cataract: Right eye Patient reported symptoms: Associated symptoms Positive for: Blurred Vision, decreased vision, difficulty with reading (right eye worse than left), difficulty with watching television, glare Negative for: Itching, flashes, floaters, tearing, dryness, halos, burning Current Visual Acuity: Right Eye Distance CC 20/80 Left Eye Distance CC 20/30 Glare Testing: Left Eye Medium 20/60 Visual Function: David Heaton states that the decline in vision from the cataract impedes the ability to read, watch televison as well as other activities of daily living. David Heaton has confirmed that he is no longer able to function adequately on a day-to-day basis because of his current visual condition. Further, it is my medical opinion that the cataract is the primary cause, or at least a significantly contributory cause of his visual dysfunction. With uncomplicated cataract surgery and lens implantation, it is my expectation that his visual function and quality of life will improve, significantly. The risks, benefits, alternatives, personnel and complications of cataract surgery with lens implantation were discussed with David Heaton in detail. he appeared to understand and asked that I proceed with plans for surgery. Continue medications as directed: Current Ophthalmic Meds loteprednol etabonate (EYSUVIS) 0.25 % drps Use 1 Drop in the right eye four times daily Systane Complete Artificial Tears - Use 1 Drop into both eyes three times a day. Patient wishes to have traditional cataract surgery with basic Intraocular lens right eye 09/03/2021 at [facility] . Patient wishes to have cataract surgery with the option stated above. Patient understands that an intraocular lens implant does not necessarily replace the need for glasses. Patient understands that it is impossible for the surgeon to inform him/her of every possible complication that may occur. The surgeon has answered all of the patient's questions. Patient understands that if he/she has a mature or dense cataract, pseudoexfoliation cataract, or history of use of Flomax, he/she may require the use of Maluyugin Ring and/or Vision Blue during surgery. Patient understands the risks, benefits, and alternatives to surgery. 2. Combined form of age-related cataract, left eye - ICD9: 366.19, ICD10: H25.812 Plan surgery left eye once right eye is stable Satya Rebollar MD I have confirmed and edited as necessary the relevant ophthalmic history, review of systems, surgical history, and ophthalmological examination findings as obtained by the ophthalmic technical staff. I have seen and examined David Heaton. I have discussed the examination findings, diagnosis, and treatment options with David Heaton and/or his family. I have also reviewed and agree with the assessment and plan as stated above and agree with all its relevant components. I gave the patient the opportunity to ask questions about the findings, diagnosis, and treatment options.[facility]03-22-2022 Instructions* Patient Instructions * Satya Rebollar MD - 08/04/2021 4:11 PM EDT Continue medications as directed: Current Ophthalmic Meds loteprednol etabonate (EYSUVIS) 0.25 % drps Use 1 Drop in the right eye four times daily Systane Complete Artificial Tears - Use 1 Drop into both eyes three times a day. If you have any questions please contact our office at [phone]. After office hours or on the weekend, please call Dr. Rebollar on his cell phone at [phone]. documented in this encounterReg[facility]03-22-[facility]22 History of Present illness Narrative* Satya Rebollar MD - 08/04/2021 4:04 PM EDT ASSESSMENT/PLAN: 1. Combined form of age-related cataract, right eye - ICD9: 366.19, ICD10: H25.811 (primary diagnosis) Reviewed Dr. Francis Navarro's examination and notes today Blood pressure 127/94, pulse 70. Cataract Presurgical Documentation Cataract: Right eye Patient reported symptoms: Associated symptoms Positive for: Blurred Vision, decreased vision, difficulty with reading (right eye worse than left), difficulty with watching television, glare Negative for: Itching, flashes, floaters, tearing, dryness, halos, burning Current Visual Acuity: Right Eye Distance CC 20/80 Left Eye Distance CC 20/30 Glare Testing: Left Eye Medium 20/60 Visual Function: David Heaton states that the decline in vision from the cataract impedes the ability to read, watch televison as well as other activities of daily living. David Heaton has confirmed that he is no longer able to function adequately on a day-to-day basis because of his current visual condition. Further, it is my medical opinion that the cataract is the primary cause, or at least a significantly contributory cause of his visual dysfunction. With uncomplicated cataract surgery and lens implantation, it is my expectation that his visual function and quality of life will improve, significantly. The risks, benefits, alternatives, personnel and complications of cataract surgery with lens implantation were discussed with David Heaton in detail. he appeared to understand and asked that I proceedwith plans for surgery. Continue medications as directed: Current Ophthalmic Meds loteprednol etabonate (EYSUVIS) 0.25 % drps Use 1 Drop in the right eye four times daily Systane Complete Artificial Tears - Use 1 Drop into both eyes three times a day. Patient wishes to have traditional cataract surgery with basic Intraocular lens right eye 09/03/2021 at [facility] . Patient wishes to have cataract surgery with the option stated above. Patient understands that an intraocular lens implant does not necessarily replace the need for glasses. Patient understands that it is impossible for the surgeon to inform him/her of every possible complication that may occur. The surgeon has answered all of the patient's questions. Patient understands that if he/she has a mature or dense cataract, pseudoexfoliation cataract, or history of use of Flomax, he/she may require the use of Maluyugin Ring and/or Vision Blue during surgery. Patient understands the risks, benefits, and alternatives to surgery. 2. Combined form of age-related cataract, left eye - ICD9: 366.19, ICD10: H25.812 Plan surgery left eye once right eye is stable Satya Rebollar MD I have confirmed and edited as necessary the relevant ophthalmic history, review of systems, surgical history, and ophthalmological examination findings as obtained by the ophthalmic technical staff.I have seen and examined David Heaton. I have discussed the examination findings, diagnosis, and treatment options with David Heaton and/or his family. I have also reviewed and agree with the assessment and plan as stated above and agree with all its relevant components. I gave the patient the opportunity to ask questions about the findings, diagnosis, and treatment options. documented in this encounterReg[facility]03-22-[facility]22 History of Past illness Narrative* Problem Noted Date Resolved Date Combined form of age-related cataract, right eye 08/04/2021 09/04/2021 documented as of this encounter (statuses as of 09/04/2021) [facility] Diagnosis Combined form of age-related cataract, right eye- Primary Combined form of age-related cataract, left eye [facility] Diagnosis Combined form of age-related cataract, right eye- Primary Combined form of age-related cataract, left eye Combined forms of age-related cataract of right eye Other and combined forms of senile cataract [facility]* Diagnosis Status post cataract extraction and insertion of intraocular lens of right eye- Primary Combined form of age-related cataract, left eye [facility]* Diagnosis Status post cataract extraction and insertion of intraocular lens of left eye- Primary Pseudophakia of right eye Lens replaced by other means documented in this encounter [facility] Summary Purpose Family History No Family History Records FoundNo Family History Records FoundNo Family History Records FoundNo Family History Records Found Advance Directives No Advanced Directives Records FoundNo Advanced Directives Records FoundNo Advanced Directives Records FoundNo Advanced Directives Records Found Additional Source Comments (unrecognized sect ion and content) No Status Records FoundNo Status Records FoundNo Status Records FoundNo Status Records Found INFORMATION SOURCE (unrecogn ized section and content) DATE CREATED AUTHOR AUTHOR'S ORGANIZ ATION 09/01/2021 [facility] DATE CREATED AUTHOR AUTHOR'S ORGANIZ ATION 01/10/2022 [facility] DATE CREATED AUTHOR AUTHOR'S ORGANIZ ATION 08/16/2022 [facility] Source Comments (unrecognize d section and content) In the event this informatio n is protected by the Federal Confidentiality of Alcohol and Drug Abuse Patient Records regulations: The Federal rules restrict any use of the information to criminally investigate or prosecute any alcohol or drug abuse patient.[facility]edoIn the event this information is protected by the Federal Confidentiality of Alcohol and Drug Abuse Patient Records regulations: The Federal rules restrict any use of the information to criminally investigate or prosecute any alcohol or drug abuse patient.[facility]edoIn the event this information is protected by the Federal Confidentiality of Alcohol and Drug Abuse Patient Records regulations: The Federal rules restrict any use of the information to criminally investigate or prosecute any alcohol or drug abuse patient.[facility]edoIn the event this information is protected by the Federal Confidentiality of Alcohol and Drug Abuse Patient Records regulations: The Federal rules restrict any use of the information to criminally investigate or prosecute any alcohol or drug abuse patient.[facility] Reason for Visit (unrecogniz ed section and content) Reason Comments Blurred Vision Both Eyes Difficulty Reading Both Eyes Glare Halos Both Eyes Reason Comments Post-op Cataract OD Status Post Cataract Surgery with Basic IOL - Right eye (09-03-21) Blurred Vision Left Eye Halos Both Eyes Difficulty Reading Left Eye Reason Comments Post-op Cataract OS Status Post Cataract with Intraocular lens with LRI ofLeft eye 01-07-2022 Post-op Cataract OD 09-03-2021 Care Teams (unrecognized sec tion and content) Director Funeral Relationship Specialty Start Date End Date Rosalio Navarro MD [address] [place] [id number] PCP - General Family Practice 08/04/21 FOR RECORDS PERTAINING TO PATIENTS WHO ARE OR HAVE BEEN ENROLLED IN A CHEMICAL DEPENDENCY/SUBSTANCEABUSE PROGRAM, SOME INFORMATION MAY BE OMITTED. This clinical summary was aggregated from multiple sources. Caution should be exercised in using it in the provision of clinical care. This summary normalizes information from multiple sources, and as a consequence, information in this document may materially change the coding, format and clinical context of patient data. In addition, data may be omitted in some cases. CLINICAL DECISIONS SHOULD BE BASED ON THE PRIMARY CLINICAL RECORDS. [employer] provides no warranty or guarantee of the accuracy or completeness of information in this document.
[2023-07-08 12:30] LABS: Absolute Lymphocyte Count 1.98 X10^3/uL (0.83-4.51); Absolute Neutrophil Count 3.1 X10^3/uL (2.0-7.7); Basophil# 0.01 X10^3/uL; Basophil% 0.2 % (0-1); Eosinophil# 0.03 X10^3/uL; Eosinophils% 0.5 % (0-5); Hematocrit 47.1 % (40-54); Hemoglobin 16.1 g/dL (13.0-16.5); Lymphocyte # 1.98 X10^3/ul (0.83-4.51); Lymphocyte % 34.3 % (19-41); Mean Corp Hgb Conc 34.2 g/dL (32-36); Mean Corpuscular Hgb 30.4 pg (27.0-32.0); Mean Corpuscular Volume 88.9 fL (80-94); Mean Platelet Vol. 9.6 fl (6.2-12.0); Monocyte# 0.61 X10^3/uL; Monocyte% 10.6 % (0-10); NRBC Flagged by Analyzer 0 % (0-5); Neutrophil # 3.12 X10^3/uL (2.7-7.7); Neutrophil % 53.9 % (47-70); Platelet Count 278 K/mm3 (150-450); RBC Distribution Width CV 11.5 % (11.6-14.6); RBC Distribution Width SD 37.2 fl (35.1-43.9); White Blood Count 5.8 K/mm3 (4.4-11.0)
[2023-07-08 12:59] LABS: AST(SGOT) 29 U/L (15-37); Alanine Aminotransfer ALT/SGPT 49 U/L (16-61); Albumin, Serum 3.8 g/dL (3.2-5.0); Alkaline Phosphatase 50 U/L (45-117); Anion Gap 5 (5-15); BUN 14 mg/dL (7-18); BUN/Creat Ratio 15.6 RATIO (10-20); Calcium,Total 9.5 mg/dL (8.5-10.1); Chloride 107 mmol/L (98-107); Cholesterol 239 mg/dL (200); EST Glomerular Filtration Rate 95 mL/min (>60); Est Glom Filt Rate - Afr Amer 115 mL/min (>60); Globulin 3.8 g/dL (2.2-4.2); Glucose 108 mg/dL (74-106); High Density Lipoprotein 62 mg/dL; Protein, Total 7.6 g/dL (6.4-8.2); Sodium Level 137 mmol/L (136-145); Triglycerides 155 mg/dL; Very Low Density Lipoprotein 31 mg/dL (5-40)
[2023-07-11 13:07] LABS: Lipoprotein A 46.9 nmol/L (<75.0)
== END | disposition home or self-care (01) ==
LOC: MFPLAB 10:33
PROVIDERS: PCP Family Medicine; Visit Provider Family Medicine
DX: E78.5 Hyperlipidemia, unspecified (principal)
CPT/HCPCS: 36415; 80053; 80061; 83695; 85025

== ENCOUNTER → 2024-02-14 | Outpatient (CLI) | payer BC, SELFPAY ==
[2024-02-14 10:30] LABS: AST(SGOT) 29 U/L (15-37); Alanine Aminotransfer ALT/SGPT 55 U/L (16-61); Albumin, Serum 3.8 g/dL (3.2-5.0); Alkaline Phosphatase 46 U/L (45-117); Anion Gap 6 (5-15); BUN 14 mg/dL (7-18); BUN/Creat Ratio 15.3 RATIO (10-20); Calcium,Total 9.4 mg/dL (8.5-10.1); Chloride 107 mmol/L (98-107); Cholesterol 258 mg/dL (200); Creatinine, Serum 0.91 mg/dL (0.70-1.30); EST Glomerular Filtration Rate 93 mL/min (>60); Est Glom Filt Rate - Afr Amer 113 mL/min (>60); Globulin 3.8 g/dL (2.2-4.2); Glucose 106 mg/dL (74-106); High Density Lipoprotein 71 mg/dL; PSA,Total - Annual Screen 0.82 ng/mL (0.00-4.00); Potassium 4.2 mmol/L (3.5-5.1); Protein, Total 7.6 g/dL (6.4-8.2); Sodium Level 138 mmol/L (136-145); Triglycerides 96 mg/dL; Very Low Density Lipoprotein 19 mg/dL (5-40)
== END | disposition home or self-care (01) ==
PROVIDERS: PCP Family Medicine; Referring Provider Family Medicine; Visit Provider Family Medicine
DX: E78.5 Hyperlipidemia, unspecified (principal); R74.01 Elevation of levels of liver transaminase levels; Z12.5 Encounter for screening for malignant neoplasm of prostate
CPT/HCPCS: 36415; 80053; 80061; 84153; G0103

== ENCOUNTER → 2025-02-15 | Outpatient (CLI) | payer BC, SELFPAY ==
[2025-02-15 11:21] LABS: AST(SGOT) 35 U/L (<=37); Alanine Aminotransfer ALT/SGPT 59 U/L (<=46); Albumin, Serum 4.5 g/dL (3.5-5.0); Alkaline Phosphatase 45 U/L (40-129); Anion Gap 13 (5-15); BUN 9 mg/dL (4-19); BUN/Creat Ratio 10.0 RATIO (10-20); Calcium,Total 9.4 mg/dL (7.6-11.0); Carbon Dioxide 23.5 mmol/L (21.0-32.0); Chloride 102 mmol/L (98-108); Cholesterol 239 mg/dL (<=200); Globulin 3.0 g/dL (2.2-4.2); Glucose 97 mg/dL (70-99); Low Density Lipoprotein Calc. 153 mg/dL; PSA,Total - Annual Screen 0.74 ng/mL (0.02-4.00); Potassium 4.2 mmol/L (3.3-5.1); Triglycerides 137 mg/dL; Very Low Density Lipoprotein 27 mg/dL (5-40); cholesterol:hdl ratio screen 4.06
[2025-02-16 03:07] LABS: GGTP 62 IU/L (0-65)
== END | disposition home or self-care (01) ==
LOC: MTLAB 09:20
PROVIDERS: PCP Family Medicine; Referring Provider Family Medicine; Visit Provider Family Medicine
DX: Z00.00 Encounter for general adult medical examination without abnormal findings (principal); Z12.5 Encounter for screening for malignant neoplasm of prostate; E78.5 Hyperlipidemia, unspecified; F10.90 Alcohol use, unspecified, uncomplicated
CPT/HCPCS: 36415; 80053; 80061; 82977; 84153; G0103